=== PATIENT | female | born 2000 | race Caucasian/White ===

== ENCOUNTER 2020-09-24 18:00 | Inpatient (IN) | payer OTHER ==
[~2020-09-24] VITALS: Ht 165.1 cm; Wt 87.1 kg
[2020-09-24] MEDS ORDERED: PRENATAL TABLE1 EAC1 PO (19:33)
== END 2020-09-26 14:44 | disposition home or self-care (01) | DRG 807 ==
LOC: LDR 18:00 → OB/GYN 18:00
PROVIDERS: ADMIT Specialist; ATTEND Specialist
PROC: 10E0XZZ Delivery of Products of Conception, External Approach (ICD-10-PCS; principal; 2020-09-24)
PROC: 0UQGXZZ Repair Vagina, External Approach (ICD-10-PCS; 2020-09-24)
PROC: 4A1HXFZ Monitoring of Products of Conception, Cardiac Rhythm, External Approach (ICD-10-PCS; 2020-09-24)
DX: O71.4 Obstetric high vaginal laceration alone (principal); Z37.0 Single live birth; Z3A.37 37 weeks gestation of pregnancy; Z20.822 Contact with and (suspected) exposure to COVID-19